=== PATIENT | female | born 1950 | race Caucasian/White ===

== ENCOUNTER 2018-03-04 13:10 | Outpatient (RCR) | payer MEDICARE ==
[~2018-03-04 13:10] MED LIST: CALC-547 PO; FOL1 PO; LEVO175T37 PO; METH2.5T43 PO; METH25VI IJ; MULT1CAP41 PO; ROS10 PO
[2018-03-05] MEDS ORDERED: IOPAMIDOL 76% 75 ML INFUS BTL 75 ML ONE (15:19)
--- NOTE | 2018-03-05 16:29 | RADIOLOGY IMAGING REPORT ---
FACILITY: [facility] - [place] PATIENT NAME: Sneha Velasquez : 1950 MR: [id number] V: [id number] EXAM DATE: ORDERING PHYSICIAN: JAYLEN ALBA TECHNOLOGIST: Location[place] [facility] [place] Patient: Sneha Velasquez : 1950 Visit/Account:[id number] Date of Sevice: 03/05/2018 CT neck with contrast Comparison: None Additional pertinent history: Swollen lymph nodes bilaterally for 8 weeks. TECHNIQUE: Multiple axial images were obtained from the mid portion of the brain through the superio r mediastinum with IV contrast. Coronal and sagittal reformatted images were obtained off the axial source data. One of the following dose optimization techniques was utilized in the performance of t his exam: Automated exposure control; adjustment of the mA and/or kV according to the patient's size; or use of an iterative reconstruction technique. Specific details can be referenced in the [facility]'s radiology CT exam operational policy. CONTRAST: 75 mL of Isovue-370 FINDINGS: Visualized portions of the brain parenchyma:Negative Parotid glands/submandibular glands/thyroid: Negative Orbits: Negative Paranasal sinuses: Negative Parapharyngeal spaces: Negative Nasopharynx/oropharynx/hypopharynx: Negative Tonsillar pillars: Negative Oral tongue/tongue base: Negative True and false cords: Negative Lymph node assessment:Negative Surrounding soft tissues: Negative Vasculature: Mild calcified atherosclerotic plaque involving the thoracic aortic arch. Otherwise ne gative Osseous structures: Spondylitic change involving the mid to lower cervical spine. Lung apices: Negative IMPRESSION: 1. No acute process involving the neck. Specifically no evidence of pathologically enlarged lymph n odes within the neck. Report Dictated By: Moreno Arguello MD at 03/05/2018 4:20 PM Report E-Signed By: Moreno Arguello MD at 03/05/2018 4:24 PM WSN:[id number]
== END 2018-03-05 18:00 | disposition home or self-care (01) ==
LOC: CT 13:10
PROVIDERS: ATTEND Nurse Practitioner Family
DX: R59.0 Localized enlarged lymph nodes (principal); E06.3 Autoimmune thyroiditis
CPT/HCPCS: 36415; 70491; 82565; 84443; Q9967

== ENCOUNTER → 2018-09-18 | Outpatient (CLI) | payer MEDICARE ==
--- NOTE | 2018-09-19 08:46 | RADIOLOGY IMAGING REPORT ---
FACILITY: [facility] - [place] PATIENT NAME: JEANA ROSS : [id number] MR: [id number] V: [id number] EXAM DATE: [id number] ORDERING PHYSICIAN: JAYLEN ALBA TECHNOLOGIST: Ghazala Hussein PROCEDURE:BILATERAL DIGITAL SCREENING MAMMOGRAM WITH CAD ASSISTED INTERPRETATION & 3D TOMOSYNTHESIS COMPARISON:Prior mammograms dated 09/17/17, 08/13/16, 08/10/15, 08/05/14, 07/31/13, 07/29/13 INDICATIONS:SCREENING FINDINGS: Moderately heterogeneous fibroglandular tissue is seen throughout the breasts. The parenchymal pattern has remained stable allowing for difference in mammographic technique & patient positioning. There is no evidence of malignant appearing mass, malignant appearing calcification or other secondary sign of malignancy in either breast. DIAGNOSTIC CATEGORY 1--NEGATIVE. RECOMMENDATIONS: ROUTINE MAMMOGRAM AND CLINICAL EVALUATION. IMPRESSION: BIRADS 1: Negative. No significant abnormality is seen. Dictated by: Lucia Shaikh M.D. on 09/18/2018 at 8:39 Transcribed by: ELAYNE on 09/18/2018 at 8:47 Approved by: Lucia Shaikh M.D. on 09/19/2018 at 8:44 [facility]
== END ==
LOC: MAMO 00:42
PROVIDERS: ATTEND Nurse Practitioner Family
DX: Z12.31 Encounter for screening mammogram for malignant neoplasm of breast (principal)
CPT/HCPCS: 77063; 77067